=== PATIENT | female | born 1945 | race Caucasian/White ===

== ENCOUNTER 2021-04-27 23:18 | Inpatient (IN) ==
[2021-04-27] MEDS ORDERED: Ondansetron 4 mg VIAL 2 MG/ML 2 ml VIAL IV PRN (23:43)
[2021-04-27] MEDS ORDERED: Albuterol HFA INHALER 8 gm MDI INH PRN (23:47)
[2021-04-28 00:53] LABS: Magnesium 2.2 mg/dL (1.9-2.7)
[2021-04-28 01:08] LABS: TSH Ultra Thyroid Stim Horm 0.5 mcIU/mL (0.34-5.60)
[2021-04-28 01:13] LABS: Free T4 1.34 ng/dL (0.61-1.12)
[2021-04-28] MEDS ORDERED: Fluticasone NASAL SPRAY 50MCG 16 gm SPRAY BTL BOTH NARES PRN (01:26)
[2021-04-28] MEDS ORDERED: CHOLECALCIFEROL 50000 UNIT PO SCH (01:30)
[2021-04-28] MEDS: Enoxaparin 40 MG/0.4 ML SYR SUBCUT SCH ×2 (02:37→21:52)
[2021-04-28 06:52] LABS: ABS Eosinophils 0.4 10^3/ul (0-0.6); ABS Lymphocytes 0.7 10^3/ul (1.0-4.8); ABS Monocytes 0.6 10^3/ul (0-0.8); ABS Neutrophils 4.4 10^3/ul (1.5-7.7); Eosinophil % 6.4 %; Hematocrit 36 % (35-47); Lymphocyte % 11.3 %; Mean Corpuscular HGB Conc 34 g/dL (31-36); Mean Corpuscular Hemoglobin 31 pg (27-31); Mean Corpuscular Volume 93 fL (80-97); Mean Platelet Volume 8.8 fL (7.4-10.4); Platelet Count 197 10^3/uL (150-450); Red Blood Count 3.83 10^6 /uL (3.70-4.87); Red Cell Distribution Width 15 % (10-15); White Blood Count 6.2 10^3/uL (3.5-10.8)
[2021-04-28 07:11] LABS: Calcium 8.7 mg/dL (8.6-10.3); Potassium 3.7 mmol/L (3.5-5.0); eGFR CKD-EPI 65.7 (>60)
[2021-04-28] MEDS: COLESTIPOL 1 GM PO SCH ×2 (09:36→22:03)
[2021-04-28] MEDS ORDERED: Perflutren Lipid Microsphere 3 ML VIAL ONE (12:46)
[2021-04-28 14:13] LABS: Albumin 3.5 g/dL (3.2-5.2); Direct Bilirubin 1.3 mg/dL (0.03-0.18); Indirect Bilirubin 0.6 mg/dL (0.3-1.0); Total Bilirubin 1.9 mg/dL (0.2-1.0)
[2021-04-28 14:18] LABS: Albumin/Globulin Ratio 1.3 (1-3); Globulin 2.7 g/dL (2-4); Total Protein 6.2 g/dL (6.4-8.9)
[2021-04-28 14:49] LABS: Hepatitis B Surface Antigen Nonreactive (Nonreactive)
[2021-04-28 14:54] LABS: Hepatitis A Ab IgM Negative (Negative)
[2021-04-28 14:55] LABS: Hepatitis B Core IgM Nonreactive (Nonreactive)
[2021-04-28 15:06] LABS: Hepatitis C Antibody Negative (Negative)
[2021-04-29 03:15] LABS: Urine Appearance Cloudy; Urine Bilirubin Negative (Negative); Urine Blood Negative (Negative); Urine Color Amber; Urine Glucose Negative (Negative); Urine Ketones Negative (Negative); Urine Nitrite Positive (Negative); Urine Protein Negative (Negative); Urine Urobilinogen Negative (Negative)
[2021-04-29 03:27] LABS: Urine Bacteria Absent (Absent); Urine Red Blood Cell Trace(0-2/hpf) (Absent); Urine Squamous Epithelial Cell Present (Absent); Urine White Blood Cell 2+(11-20/hpf) (Absent)
[2021-04-29 06:13] LABS: ABS Eosinophils 0.5 10^3/ul (0-0.6); ABS Lymphocytes 0.8 10^3/ul (1.0-4.8); ABS Monocytes 0.7 10^3/ul (0-0.8); ABS Neutrophils 4.2 10^3/ul (1.5-7.7); Eosinophil % 7.5 %; Hematocrit 34 % (35-47); Hemoglobin 11.7 g/dL (12.0-16.0); Lymphocyte % 12.8 %; Mean Corpuscular HGB Conc 34 g/dL (31-36); Mean Corpuscular Hemoglobin 32 pg (27-31); Mean Corpuscular Volume 93 fL (80-97); Mean Platelet Volume 8.9 fL (7.4-10.4); Platelet Count 184 10^3/uL (150-450); Red Blood Count 3.71 10^6 /uL (3.70-4.87); Red Cell Distribution Width 14 % (10-15); White Blood Count 6.1 10^3/uL (3.5-10.8)
[2021-04-29 06:43] LABS: Albumin 3.2 g/dL (3.2-5.2); Albumin/Globulin Ratio 1.2 (1-3); C Reactive Protein 53.51 mg/L (<8.01); Calcium 8.5 mg/dL (8.6-10.3); Globulin 2.6 g/dL (2-4); Potassium 3.9 mmol/L (3.5-5.0); Total Protein 5.8 g/dL (6.4-8.9); eGFR CKD-EPI 65.7 (>60)
[2021-04-29] MEDS: COLESTIPOL 1 GM PO SCH ×2 (09:19→22:00)
[2021-04-29] MEDS: Enoxaparin 40 MG/0.4 ML SYR SUBCUT SCH (21:17)
[2021-04-30 06:50] LABS: ABS Eosinophils 0.5 10^3/ul (0-0.6); ABS Lymphocytes 0.9 10^3/ul (1.0-4.8); ABS Monocytes 0.6 10^3/ul (0-0.8); ABS Neutrophils 3.7 10^3/ul (1.5-7.7); Eosinophil % 9.4 %; Hematocrit 34 % (35-47); Hemoglobin 11.5 g/dL (12.0-16.0); Lymphocyte % 15.2 %; Mean Corpuscular HGB Conc 34 g/dL (31-36); Mean Corpuscular Hemoglobin 31 pg (27-31); Mean Corpuscular Volume 92 fL (80-97); Platelet Count 193 10^3/uL (150-450); Red Blood Count 3.71 10^6 /uL (3.70-4.87); Red Cell Distribution Width 15 % (10-15); White Blood Count 5.7 10^3/uL (3.5-10.8)
[2021-04-30 07:24] LABS: Albumin 3.1 g/dL (3.2-5.2); Albumin/Globulin Ratio 1.2 (1-3); Calcium 8.5 mg/dL (8.6-10.3); Direct Bilirubin 0.2 mg/dL (0.03-0.18); Globulin 2.6 g/dL (2-4); Indirect Bilirubin 0.6 mg/dL (0.3-1.0); Total Bilirubin 0.8 mg/dL (0.2-1.0); Total Protein 5.7 g/dL (6.4-8.9); eGFR CKD-EPI 76.6 (>60)
[2021-04-30] MEDS ORDERED: Senna TAB 8.6 mg TAB PO PRN (10:35)
[2021-04-30] MEDS ORDERED: Magnesium Hydroxide LIQ 30 ML UDC PO ONE (10:36)
[2021-04-30] MEDS: COLESTIPOL 1 GM PO SCH (11:04)
[2021-04-30 14:04] VITALS: BP 115/60
== END 2021-04-30 14:30 | disposition home or self-care (01) | DRG 445 ==
LOC: MEDTELE 23:18 → SUATTDRO 23:44
PROVIDERS: ADMIT Internal Medicine; ATTEND Hospitalist